=== PATIENT | male | born 1955 | race Caucasian/White ===

== ENCOUNTER 2018-02-24 03:49 | Observation (INO) | payer OTHER ==
[~2018-02-24] VITALS: Ht 180.3 cm; Wt 70.3 kg
[2018-02-24 03:55] VITALS: BP 122/86
[2018-02-24 04:22] LABS: HEMOGLOBIN 14.8 gm/dL (14.0-18.0); MCH 31.4 pg (26.0-34.0); MCHC 32.9 g/dL (28.0-37.0); MCV 95.4 fL (80.0-100.0); MPV 7.6 fl. (7.2-11.1); NUCLEATED RBCS 0 /100WBC; PLATELET COUNT* 316 thou/uL (150-400); RBC 4.72 mil/uL (4.50-6.00); RDW-CV 14.5 % (10.5-14.5); WBC 12.3 thou/uL (4.0-11.0)
[2018-02-24 04:30] LABS: CALCIUM 9.3 mg/dL (8.5-10.1); POTASSIUM 3.8 mmol/L (3.5-5.1)
[2018-02-24 04:34] LABS: TOTAL BILIRUBIN 0.5 mg/dL (<0.1-1.0); TOTAL PROTEIN 7.4 g/dL (6.4-8.2)
--- NOTE | 2018-02-24 06:00 | NUR ---
RECIEVED REPORT AND ASSUMED CARE OF PT. WAITING FOR RADIOLOGY RESULTS AT THIS TIME.
--- NOTE | 2018-02-24 06:32 | NUR ---
DR ZUÑIGA EXPLAINED NEED FOR SURGURY CONSULT REGARDING RUPTURED HERNIA. PT REPORTS NO PAIN AT THIS TIME.
[2018-02-24 08:16] LABS: ABSOLUTE LYMPHOCYTES 0.4 thou/uL (0.8-5.3); ABSOLUTE MONOCYTES 0.2 thou/uL (0.0-1.2); ABSOLUTE NEUTROPHILS 11.7 thou/uL (1.6-8.1); ANISOCYTOSIS 1+; PLATELET ESTIMATE ADEQUATE; POIKILOCYTOSIS 1+
[2018-02-24 11:05] VITALS: BP 124/78
[2018-02-24 13:00] VITALS: BP 132/89
--- NOTE | 2018-02-24 13:55 | EKG ---
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
[2018-02-24 14:00] VITALS: BP 131/75
--- NOTE | 2018-02-24 14:07 | OP ---
[address] [address] OPERATIVE REPORT Name: RADHABELTRAN Hussein Room: [place] [address] ADM IN .R.#: [id number] Admission: 02/24/18 Attend Phys: Ayanna Rivas DO Discharge: Date of : 51 Report #: [id number] THIS REPORT FOR: //name// CC: Ayanna Rivas [facility] physician/PCP DATE OF SERVICE: 02/24/2018 PREOPERATIVE DIAGNOSES: Incarcerated umbilical hernia with obstruction. POSTOPERATIVE DIAGNOSES: Incarcerated umbilical hernia with obstruction. FINDINGS: A 1 x 1 cm hernia defect, which contained a fairly large size hernia sac, which appeared to contain only incarcerated omentum at the time of surgery. SURGEON: Ayanna Rivas DO. COSURGEON: Lucio Carter, PGY2. VICE PRESIDENT REGULATORY: Claudia Lara, PGY-1. PROCEDURE PERFORMED: Repair of incarcerated umbilical hernia with mesh. ANESTHESIA: LMA and local. ESTIMATED BLOOD LOSS: 2. DRAINS: None. SPECIMENS: None. COMPLICATIONS: None. CONDITION: Stable. DISPOSITION: PACU to the floor. IMPLANTS: Small Ventralex ST quechan mesh. HISTORY OF PRESENT ILLNESS: The patient is a very pleasant 62-year-old male who presented to the ED early this morning with a complaint of a bulge at his umbilicus with extreme pain. He was found to have an elevated white count. CT scan was completed, which did show an incarcerated umbilical hernia, which appeared to contain a loop of small bowel, and there were signs of obstruction. The ED doctor was able to reduce the bowel and then advised us of his admission. He was immediately seen. He still continued to have a bulge in his umbilicus. [address] [address] OPERATIVE REPORT Name: BELTRAN GARCIA Room: [address] IN [facility].#: [id number] Admission: 02/24/18 Attend Phys: Ayanna Rivas DO Discharge: Date of : 51 Report #: [id number] His pain had improved, but he was still quite tender. He was then consented for repair of incarcerated umbilical hernia. Risks discussed included bleeding, infection, pain, scar formation, injury to bowel, need for bowel resection, mesh complications, risk of recurrence and risks of general anesthesia. The patient understood these risks and elected to proceed. DESCRIPTION OF PROCEDURE: The patient was brought to the operating room. He was laid supine on the operating room table. SCDs were placed on bilateral lower extremities. Ancef was given in the perioperative period. General LMA anesthesia was induced by Anesthesia without difficulty. Abdomen was prepped and draped in the standard sterile fashion. Timeout was performed to verify patient and procedure. A 10 mL of 0.5% Marcaine were injected in the area of the bulge just above the umbilicus. Incision was made with #15 blade. Cautery was used for hemostasis. Gentle Jojo dissection was utilized to dive down through the subcutaneous tissues. The hernia sac was then almost immediately identified. It was gently grasped using a DeBakey and was completely cleared from the surrounding subcutaneous tissues until the hernia defect could be identified. Then, using very gentle blunt finger dissection, the entirety of the umbilical stump was freed from the subcutaneous tissues. Once the entirety of the hernia defect could be identified, it was then gently dissected free from the umbilicus itself. The contents were then carefully examined. I did not see any sign of any bowel in the hernia sac. The hernia sac itself was quite large, and there was still continued good amount of omentum incarcerated within the hernia sac. With very gentle pressure, under the benefit of general anesthesia, I was finally able to reduce the incarcerated omentum. Any further adhesions holding the hernia sac to the hernia defect were cleared away. The defect itself was fairly small 1 x 1 cm. I was gently able to introduce a finger into the abdomen, and the anterior abdominal wall was swept and was found to be cleared of any further adhesions. A small Ventralex quechan ST mesh was then brought on to the field and was easily deployed within the defect. It was sutured into place on the left and right aspects using a zmflql-vk-soyab stitch of 0 Prolene. The defect itself was then closed over the mesh using a kuvjnk-ob-nzwjv fashion with 0 Prolene with excellent approximation of the defect. Care was taken while we were suturing to avoid any underlying structures. An additional 10 mL of 0.5% Marcaine were injected in the defect. The umbilical stump was reapproximated to the underlying fascia. The wound was then closed in a layered fashion using deep and superficial stitches of 3-0 Vicryl in inverted interrupted fashion. Skin wound was closed with running 4-0 Monocryl. A total of 30 mL of 0.5% Marcaine were used to anesthetize the wound. Wound was then cleansed and covered with Mastisol, Steri-Strips, 4 x 4's and a Tegaderm. The patient was then allowed to awaken from anesthesia, was extubated and transported to the recovery room with no further difficulties. Counts were [facility] [address] [place] [address] OPERATIVE REPORT Name: BELTRAN GARCIA Room: 170-10 [facility] IN .R.#: [id number] Admission: 02/24/18 Attend Phys: Ayanna Rivas DO Discharge: Date of : 51 Report #: [id number] correct x 2 at the conclusion of the case. Binder was placed in the operating room. <ELECTRONICALLY SIGNED> By: Ayanna Rivas DO 02/24/18 1407 1251 [id number] Rivas DO /nt
--- NOTE | 2018-02-24 17:14 | NUR ---
ALERT AND ORIENTED X4. UP WITH STAND BY ASSIST IN ROOM. IV IS PATENT AND INFUSING. DENIES PAIN AND NAUSEA AT THIS TIME. ABDOMINAL BINDER IS IN PLACE. SCD'S IN PLACE. TOLERATING CLEAR LIQUID DIET. VSS ON ROOM AIR. HOURLY ROUNDS HAVE BEEN MAINTAINED THROUGHOUT SHIFT SINCE ARRIVING TO UNIT. CALL LIGHT IS WITHIN REACH. NURSING WILL CONTINUE TO MONITOR.
[2018-02-24 19:40] VITALS: BP 119/80
--- NOTE | 2018-02-24 19:57 | NUR ---
PATIENT ARRIVED TO UNIT AT 1400. ALERT AND ORIENTED X4. IV IS PATENT AND INFUSING. DENIES PAIN AND NAUSEA AT THIS TIME. ABDOMINAL BINDER IN PLACE. VSS ON ROOM AIR. PATIENT HAS BEEN ORIENTED TO ROOM. CALL LIGHT IS WITHIN REACH. NURSING WILL CONTINUE TO MONITOR.
--- NOTE | 2018-02-24 22:53 | NUR ---
RECIEVED REPORT AND ASSUMED CARE OF PT AT 1940. PT PLEASANT AND COOPERATIVE. PT RESTING IN BED WITH OU CLOSED. PT DENIED PAIN AT THAT TIME. INSTRUCTED PT TO USE CALL LIGHT BEFORE GETTING UP AND FOR ASSISTANCE. DISCUSSED POST OP CARE.
[2018-02-25 00:15] VITALS: BP 99/56
[2018-02-25 04:00] VITALS: BP 104/59
--- NOTE | 2018-02-25 07:07 | NUR ---
PT PROGRESSING TOWARD GOALS. VITAL SIGNS WITHIN NORMAL LIMITS. ABDOMINAL BINDER IN PLACE POST OP UMBILICVAL HERNIA REPAIR. PT RECIEVED IV MORPHINE ONCE DURING SHIFT. PT TOOK ORAL PAIN MEDS ONCE DURING SHIFT. NO ACUTE CHANGES, WILL CONTINUE TO MONITOR.
[2018-02-25 08:00] VITALS: BP 109/61
[2018-02-25 14:13] VITALS: BP 109/61
[2018-02-25 14:18] VITALS: BP 109/61
[2018-02-25] MEDS ORDERED: NORCO 5-325 TA1 EACH PO (14:28)
[2018-02-25 15:54] VITALS: BP 109/61
--- NOTE | 2018-02-25 15:55 | NUR ---
VSS-AFEBRILE. DISCUSSED DC INSTRUCTIONS WITH PATIENT AND HIS SON. VERBALIZED UNDERSTANDING OF ALL MATERIAL. LEFT HOSPITAL WITH SON IN PRIVATE VEHICLE AND ALL PERSONAL BELONGINGS.
== END 2018-02-25 15:50 | disposition home or self-care (01) ==
LOC: M.ERS 03:49 → M.TBA-ER 07:37 → M.ORTHSURG 14:18
PROVIDERS: Emergency Medicine; ADMIT Surgery
DX: K42.0 Umbilical hernia with obstruction, without gangrene (principal); R11.2 Nausea with vomiting, unspecified; D72.829 Elevated white blood cell count, unspecified; Z79.899 Other long term (current) drug therapy